=== PATIENT | female | born 1970 | race American Indian/Alaskan Native ===

== ENCOUNTER 2021-09-30 12:33 | Outpatient (CLI) | payer OTHER, SELFPAY ==
--- NOTE | 2021-09-30 13:00 | CRLHL7_ITS ---
For Patients: As a result of the Century Cures Act, medical imaging exams and procedure reports are released immediately into your electronic medical record. You may view this report before your referring provider. If you have questions, please contact your health care provider. BILATERAL SCREENING MAMMOGRAM WITH COMPUTER-AIDED DETECTION AND TOMOSYNTHESIS TECHNIQUE: CC and MLO views were obtained. These mammographic images have been obtained using full-field digital technique. These mammographic images were interpreted with the benefit of computer-aided detection. Breast Tomosynthesis was used in this interpretation. COMPARISON FILM: 09/19/19, 07/30/18, 04/21/17 FINDINGS: There are scattered areas of fibroglandular density IMPRESSION: There is no radiographic evidence for malignancy. ASSESSMENT: BI-RADS Category 1: Negative RECOMMENDATION: Routine screening mammogram in 1 year. A lay language report of this examination will be provided to the patient. Bharath Geller M.D. Diagnostic Radiologist [email or web address] SANDRA/Dictated by: Bharath Geller MD @ 10/01/2021 8:29:00 AM (Electronically Signed)
== END 2021-09-30 12:34 | disposition home or self-care (01) ==
LOC: MAMMO 12:35
PROVIDERS: PCP Physician Assistant Medical; Visit Provider Emergency Medicine
DX: Z12.31 Encounter for screening mammogram for malignant neoplasm of breast (principal)
CPT/HCPCS: 77063; 77067

== ENCOUNTER 2022-03-28 09:41 | Outpatient (CLI) | payer OTHER, SELFPAY ==
--- NOTE | 2022-03-28 10:25 | W.ANESCHARGE ---
Anesthesia Charges Start Date/Time Anesthesia Start Date: 03/28/22 Anesthesia Start Time: 11:00 Stop Date/Time Anesthesia Stop Date: 03/28/22 Anesthesia Stop Time: 11:35
--- NOTE | 2022-03-28 11:34 | W.ANESCHARGE ---
Anesthesia Charges Start Date/Time Anesthesia Start Date: 03/28/22 Anesthesia Start Time: 11:00 Stop Date/Time Anesthesia Stop Date: 03/28/22 Anesthesia Stop Time: 11:35
== END 2022-03-28 09:42 | disposition home or self-care (01) ==
PROVIDERS: PCP Physician Assistant Medical; Visit Provider Internal Medicine
DX: Z12.11 Encounter for screening for malignant neoplasm of colon (principal); K57.30 Diverticulosis of large intestine without perforation or abscess without bleeding
CPT/HCPCS: 00811; 45378; J2704

== ENCOUNTER 2022-10-23 11:25 | Emergency (ER) | payer OTHER, SELFPAY ==
[2022-10-23 11:45] VITALS: BP 113/77; PULSE 67; RESP 18; TEMP 35.8; O2SAT 98; BMI 29.1
--- NOTE | 2022-10-23 14:35 | CRLHL7_ITS ---
For Patients: As a result of the Century Cures Act, medical imaging exams and procedure reports are released immediately into your electronic medical record. You may view this report before your referring provider. If you have questions, please contact your health care provider. Indication: Chest pain Technique: Chest 2 views Comparison: Chest x-ray 02/22/2018 Findings/Impression: Cardiovascular and mediastinum: Heart size and vasculature are normal in caliber and appearance. Mediastinum is within normal limits. Lungs and pleural spaces: Lungs are clear. No sign of infiltrate or mass. No sign of pleural effusion. No pneumothorax. Bones and soft tissues: No significant findings. Dictated by Geovanny Barlow MD @ 10/23/2022 4:08:25 PM (Electronically Signed)
[2022-10-23 14:45] VITALS: BP 118/80; PULSE 55; RESP 20; O2SAT 96
[2022-10-23] MEDS: LACTATED RINGERS 1000 ML 1,000 ML IV (14:58)
--- NOTE | 2022-10-23 15:04 | ED.GENADULT ---
HPI - General Adult General Date Seen: 10/23/22 Chief complaint: Anxiety Stated complaint: Panic attack this AM Time Seen by Provider: 10/23/22 11:55 Source: patient Mode of arrival: ambulatory Limitations: no limitations History of Present Illness HPI narrative: Patient is a 52-year-old female presenting to the emergency department for choose pT2 discomfort. She states she has been feeling off all day and then earlier today around 10:00 o'clock she states she had a panic attack and had sharp pain in her lower sternal region the radiated around her chest. The pain was short lasting and nature has gone away completely. He did not come in immediately because she thought she just had a panic attack. She continues to feel tired and slight lightheadedness. She states she has not ate or drank much today thinks she might be dehydrated. No history of cardiac issues. Denies shortness of breath, abdominal pain, headache, vision changes, weakness, numbness, dizziness. Has had chills but no fevers. 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 Related Data Home Medications Medication Instructions Recorded Confirmed hydrochlorothiazide 12.5 mg capsule 12.5 mg PO DAILY 08/29/21 10/23/22 sertraline 50 mg tablet 75 mg PO DAILY 08/29/21 10/23/22 Previous Rx's Medication Instructions Recorded clindamycin phosphate 1 % lotion 1 applic topical QAM #60 mL 08/29/21 spironolactone 50 mg tablet 50 mg PO BID #180 tabs 08/29/21 clotrimazole-betamethasone 1 1 applic topical BID #15 grams 04/28/22 %-0.05 % topical cream ruxolitinib 1.5 % topical cream 1 applic topical BID #60 grams 09/16/22 (Opzelura) tretinoin 0.025 % topical cream 1 applic topical .HS #45 grams 09/16/22 triamcinolone acetonide 0.1 % 1 applic topical BID #80 grams 09/16/22 topical cream valacyclovir 500 mg tablet 500 mg PO DAILY #30 tabs 09/16/22 Allergies Allergy/AdvReac Type Severity Reaction Status Date / Time Sulfa Antibiotics Allergy Unknown Hives Uncoded 09/16/22 07:34 Review of Systems Status of ROS: Reports: 10 or more systems reviewed and unremarkable except as noted in History and below PFSH PFSH Medical History Herpes simplex ?B00.9 - Herpesviral infection, unspecified (ICD-10) Impetiginous eczema ?L01.1 - Impetiginization of other dermatoses (ICD-10) Premenstrual dysphoric disorder (04/30/12) ?F32.81 - Premenstrual dysphoric disorder (ICD-10) Menorrhagia (04/30/12) ?N92.0 - Excessive and frequent menstruation with regular cycle (ICD-10) History of renal calculi ?Z87.442 - Personal history of urinary calculi (ICD-10) Exposure to severe acute respiratory syndrome coronavirus 2 (SARS-CoV-2) ?Z20.822 - Contact with and (suspected) exposure to COVID-19 (ICD-10) Depressive disorder (09/18/06) ?F32.A - Depression, unspecified (ICD-10) Dental abscess ?K04.7 - Periapical abscess without sinus (ICD-10) Benign hypertension (05/24/12) ?I10 - Essential (primary) hypertension (ICD-10) Surgical History History of tubal ligation ?Z98.51 - Tubal ligation status (ICD-10) History of total hysterectomy ?Z90.710 - Acquired absence of both cervix and uterus (ICD-10) History of hernia repair ?Z98.890 - Other specified postprocedural states (ICD-10) ?Z87.19 - Personal history of other diseases of the digestive system (ICD-10) History of gastric bypass ?Z98.84 - Bariatric surgery status (ICD-10) History of cholecystectomy ?Z90.49 - Acquired absence of other specified parts of digestive tract (ICD-10) Family History Mother Diabetes High blood pressure Other Gout Social History Narrative: Has 3 children No history of alcohol use Non-smoker Smoking Status: Never smoker Exam Narrative: Exam Narrative: Const: Well-nourished, Well-developed, in mild distress Eyes: PERRL, no conjunctival injection, and symmetrical lids ENMT: Atraumatic external nose and ears. Moist mucous membranes. Neck: Symmetric, trachea midline, No thyromegaly. CVS: RRR, No murmurs or gallops. Peripheral pulses 2+ and equal in all extremities RESP: Unlabored respiratory effort. Clear to auscultation bilaterally. GI: Nontender/Nondistended, No rebound or guarding. MSK:Extremities w/o deformity, Normal Active ROM Skin: Warm, Dry. No rashes or lesions. Neuro: Normal Muscle tone, No focal neurological deficits. Psych: Awake, Alert, & Oriented x3. Appropriate mood and affect. Const: Vital Signs, click to edit/add: Vital Signs - 24 hr 10/23/22 11:45 10/23/22 14:45 10/23/22 17:18 Temperature 96.4 F L 97.1 F L Pulse Rate [Pulse Oximeter] 67 55 L 52 L Respiratory Rate 18 20 20 Blood Pressure [Ri ght Upper Arm] 113/77 118/80 119/78 Pulse Oximetry 98 96 96 Oxygen Delivery Me thod Room Air Room Air Room Air Course Vital Signs Vital signs: Initial Vital Signs Temperature 96.4 F L 10/23/22 11:45 Temperature Source Temporal Artery Scan 10/23/22 11:45 Pulse Rate 67 10/23/22 11:45 Respiratory Rate 18 10/23/22 11:45 Blood Pressure 113/77 10/23/22 11:45 Blood Pressure Mean 89 10/23/22 11:45 Blood Pressure Position Sitting 10/23/22 11:45 Pulse Oximetry 98 10/23/22 11:45 Oxygen Delivery Method Room Air 10/23/22 11:45 Vital Signs Temperature 96.4 F L 10/23/22 11:45 Pulse Rate 67 10/23/22 11:45 Respiratory Rate 18 10/23/22 11:45 Blood Pressure 113/77 10/23/22 11:45 Pulse Oximetry 98 10/23/22 11:45 Oxygen Delivery Method Room Air 10/23/22 11:45 Temperature 97.1 F L 10/23/22 17:18 Pulse Rate 52 L 10/23/22 17:18 Respiratory Rate 20 10/23/22 17:18 Blood Pressure 119/78 10/23/22 17:18 Pulse Oximetry 96 10/23/22 17:18 Oxygen Delivery Method Room Air 10/23/22 17:18 Medical Decision Making MDM Narrative Medical decision making narrative: Patient is a 21-year-old female presenting to emergency department for chest pain and fatigue. Symptoms appear consistent with viral syndrome but with the chest pain and cardiac workup was ordered. Pain was very short lived and she initially thought was just a panic attack but she still feeling fatigued so came to the emergency department. chest x-ray was done showing no signs of pneumothorax or pneumonia. Mediastinum within normal size. Lab work all returned showing no concerning abnormalities. Troponin is less than 0.01. Very mild elevated AST and ALT in this is not of a concern at this time. No signs of infection with the white blood cell count. Urinalysis was ordered because she requested after she started having low back pain and was negative. She did not require any pain medications. COVID/flu/ RSV was also negative. EKG return showing bradycardia and she is asymptomatic during this. I spoke to her about the bradycardia and she says her heart rate does do that but she has never spoken to her primary care provider about it. Since she is asymptomatic for the bradycardia I do not believe it needs to be further investigated in the emergency department by did have a long talk to her about the importance of following up with her primary care provider about this bradycardia so they are aware of at. Is unlikely to be ACS as she has a heart score of 1. She is otherwise doing well and can be safely discharged. Lab Data Labs: Lab Results 10/23/22 10/23/22 Range/Units 15:00 Unknown WBC 5.19 (4.50-11.00) K/uL RBC 4.22 (4.00-5.20) m/uL Hgb 12.3 (12.0-16.0) gm/dL Hct 38.4 (33.0-51.0) % MCV 91 (80-100) fL MCH 29 (26-34) pg MCHC 32 (32-36) gm/dL RDW Coeff of Chetan 13.2 (11.5-15.5) % Plt Count 289 (140-440) K/uL Neut % (Auto) 55.3 (42.0-72.0) % Lymph % (Auto) 31.0 (20-44) % [place] % (Auto) 9.6 (0.0-11.0) % Eos % (Auto) 2.9 (0.0-7.0) % Baso % (Auto) 0.6 (0.0-3.0) % Neut # (Auto) 2.87 (1.7-7.0) K/uL Lymph # (Auto) 1.61 (0.90-2.90) K/uL [place] # (Auto) 0.50 (0.00-0.90) K/UL Eos # (Auto) 0.15 (0.00-0.50) K/uL Baso # (Auto) 0.03 (0.00-0.30) K/uL Abs Immat Gran (auto) 0.03 (0.00-0.30) K/uL Imm/Tot Granulo (auto) 0.6 % Sodium 141 (135-149) mmol/L Potassium 3.7 (3.6-5.1) mmol/L Chloride 107 (96-114) mmol/L Carbon Dioxide 28 (20-32) mmol/L Anion Gap 6 L (7-15) mEq/L BUN 17 (7-30) mg/dL Creatinine 0.5 (0.5-1.5) mg/dL Estimated Creat Clear 119.78 Estimated GFR 113 ml/min Glucose 77 (60-115) mg/dL Calcium 9.4 (8.4-10.6) mg/dL Total Bilirubin 0.4 (0.1-1.5) mg/dL AST 39 H (12-35) U/L ALT 39 H (4-35) U/L Alkaline Phosphatase 111 (40-150) U/L Troponin I < 0.01 L (0.01-0.04) ng/mL Total Protein 7.4 (6.0-8.3) g/dL Albumin 4.2 (3.3-5.0) g/dL Urine Color Yellow (Yellow) Urine Appearance Clear (Clear) Urine pH 6.0 (5.0-8.5) Ur Specific [place] 1.025 (1.000-1.030) Urine Protein Negative (Negative) Urine Glucose (UA) Negative (Negative) Urine Ketones Negative (Negative) Urine Blood Negative (Negative) Urine Nitrite Negative (Negative) Urine Bilirubin Negative (Negative) Urine Urobilinogen 0.2 (0.2-1.0) Ur Leukocyte Esterase Negative (Negative) Urine RBC 0-2 (0-2) Urine WBC 0-2 (0-5) Ur Squamous Epith Cells None (None-Few) Urine Bacteria None (None) Urine HCG, Qual Negative (Negative) SARS-CoV-2 (PCR) Negative SARS-CoV-2 (Negative) Influenza Type A (PCR) Negative PCR FLU A (Negative) Influenza Type B (PCR) Negative PCR FLU B (Negative) RSV (PCR) Negative PCR RSV (Negative) ECG Data Attestation: I personally reviewed and interpreted this ECG as follows: Prior ECG tracings: not available for review Interpretation: Sinus bradycardia rate 48 beats per minute, normal intervals, normal axis, no ST or T-wave abnormalities Discharge Plan Discharge Clinical Impression: Atypical chest pain Patient Disposition: Home, Self-Care Condition: Stable Instructions: Noncardiac Chest Pain (ED) Additional Instructions: follow-up with the primary care provider. Return for new or worsening symptoms. Make sure to talk to your primary care provider about your intermittent bradycardia. Prescriptions: No Action sertraline 50 mg tablet 75 mg PO DAILY hydrochlorothiazide 12.5 mg capsule 12.5 mg PO DAILY spironolactone 50 mg tablet 50 mg PO BID Qty: 180 2RF clindamycin phosphate 1 % lotion 1 applic topical QAM Qty: 60 3RF triamcinolone acetonide 0.1 % cream 1 applic topical BID Qty: 80 0RF valacyclovir 500 mg tablet 500 mg PO DAILY Qty: 30 6RF tretinoin 0.025 % cream 1 applic topical .HS Qty: 45 3RF Opzelura 1.5 % cream 1 applic topical BID Qty: 60 2RF clotrimazole-betamethasone 1-0.05 % cream 1 applic topical BID Qty: 15 0RF Follow Up/Referrals: Danielle Cruz PA-C [Primary Care Provider] - Stand Alone Forms: [employer], [employer] Info Instructions
[2022-10-23 15:16] LABS: Basophils Absolute Auto 0.03 K/uL (0.00-0.30); Basophils Percent Auto 0.6 % (0.0-3.0); Eosinophils Absolute Auto 0.15 K/uL (0.00-0.50); Eosinophils Percent Auto 2.9 % (0.0-7.0); Hematocrit 38.4 % (33.0-51.0); Hemoglobin* 12.3 gm/dL (12.0-16.0); Immature Granulocytes Abs Auto 0.03 K/uL (0.00-0.30); Immature Granulocytes Pct Auto 0.6 %; Lymphocytes Absolute Auto 1.61 K/uL (0.90-2.90); Mean Corpuscular HGB Conc 32 gm/dL (32-36); Mean Corpuscular Hemoglobin 29 pg (26-34); Mean Corpuscular Volume 91 fL (80-100); Monocytes Percent Auto 9.6 % (0.0-11.0); Neutrophils Absolute Auto 2.87 K/uL (1.7-7.0); Neutrophils Percent Auto 55.3 % (42.0-72.0); Platelet Count* 289 K/uL (140-440); RDW Coefficient of Variation % 13.2 % (11.5-15.5); Red Blood Count 4.22 m/uL (4.00-5.20); White Blood Count* 5.19 K/uL (4.50-11.00)
[2022-10-23 15:24] LABS: Appearance Urine Clear (Clear); Bilirubin Urine Negative (Negative); Blood Urine Negative (Negative); Color Urine Yellow (Yellow); Glucose Urine Negative (Negative); Ketones Urine Negative (Negative); Leukocyte Esterase Urine Negative (Negative); Nitrite Urine Negative (Negative); Protein Urine Negative (Negative); Specific Gravity Urine 1.025 (1.000-1.030); Urobilinogen Urine 0.2 (0.2-1.0)
[2022-10-23 15:25] LABS: Slide Review Reflex No
[2022-10-23 15:36] LABS: Ur HCG Qualitative* Negative (Negative)
[2022-10-23 15:45] LABS: Albumin* 4.2 g/dL (3.3-5.0); Chloride* 107 mmol/L (96-114); Potassium* 3.7 mmol/L (3.6-5.1); Sodium* 141 mmol/L (135-149)
[2022-10-23 15:47] LABS: Bilirubin Total* 0.4 mg/dL (0.1-1.5); Creatinine* 0.5 mg/dL (0.5-1.5); Est. Creatinine Clearance* 119.78; Estimated Glomerular Filt Rate 113 ml/min
[2022-10-23 15:48] LABS: Alanine Aminotransferase* 39 U/L (4-35); Alkaline Phosphatase* 111 U/L (40-150); Anion Gap 6 mEq/L (7-15); Aspartate Amino Transferase* 39 U/L (12-35); Blood Urea Nitrogen* 17 mg/dL (7-30); Calcium* 9.4 mg/dL (8.4-10.6); Carbon Dioxide* 28 mmol/L (20-32); Glucose* 77 mg/dL (60-115); Total Protein* 7.4 g/dL (6.0-8.3)
[2022-10-23 15:59] LABS: RBC Urine 0-2 (0-2); WBC Urine 0-2 (0-5)
[2022-10-23 16:02] LABS: Troponin I* < 0.01 ng/mL (0.01-0.04)
[2022-10-23 16:32] LABS: PCR FLU A Negative PCR FLU A (Negative); PCR FLU B Negative PCR FLU B (Negative); PCR RSV Negative PCR RSV (Negative)
[2022-10-23 16:33] LABS: SARS PCR* Negative SARS-CoV-2 (Negative)
[2022-10-23 17:18] VITALS: BP 119/78; PULSE 52; RESP 20; TEMP 36.2; O2SAT 96
== END 2022-10-23 17:18 | disposition home or self-care (01) ==
PROVIDERS: Emergency Provider Student in an Organized Health Care Education/Training Program; PCP Physician Assistant Medical
DX: R07.89 Other chest pain (principal)
CPT/HCPCS: 36415; 71046; 80053; 81001; 81025; 84484; 85025; 87631; 93005; 99283; 99284; J7120

== ENCOUNTER 2023-11-12 12:25 | Outpatient (CLI) | payer OTHER, SELFPAY | END 2023-11-12 12:26 | disposition home or self-care (01) | LOC: NFLDREF 11-13 08:34 | PROVIDERS: PCP Physician Assistant Medical; Referring Provider Physician Assistant Medical; Visit Provider Family Medicine | DX: R30.0 Dysuria (principal); B00.9 Herpesviral infection, unspecified; N39.0 Urinary tract infection, site not specified | CPT/HCPCS: 87086; 87186 ==

== ENCOUNTER 2024-02-05 07:50 | Outpatient (CLI) | payer OTHER, SELFPAY | END 2024-02-05 07:51 | disposition home or self-care (01) | LOC: NFLDREF 02-07 09:52 | PROVIDERS: PCP Physician Assistant Medical; Referring Provider Physician Assistant Medical; Visit Provider Physician Assistant Medical | DX: I10 Essential (primary) hypertension (principal); Z13.220 Encounter for screening for lipoid disorders; Z13.29 Encounter for screening for other suspected endocrine disorder | CPT/HCPCS: 80053; 80061; 84443 ==

== ENCOUNTER 2024-11-16 15:32 | Outpatient (CLI) | payer OTHER, SELFPAY | END 2024-11-16 15:33 | disposition home or self-care (01) | PROVIDERS: PCP Physician Assistant Medical; Visit Provider Physician Assistant Medical | DX: I10 Essential (primary) hypertension (principal); E55.9 Vitamin D deficiency, unspecified | CPT/HCPCS: 80053; 80061; 84443 ==

== ENCOUNTER 2025-01-28 21:54 | Day surgery (SDC) | payer MEDICAID, SELFPAY ==
--- OUTSIDE RECORDS SUMMARY | 2025-01-28 21:56 | XMS_ITS | Clinical Summary ---
Author Organization [facility] [facility] Address [address] [place] [address] Care Team Providers Care Change Management Analyst Name Role Phone CruzDanielle ace Michaelle LEONARDO Primary Care Provider [phone] Thai Man MD Unavailable [phone] Unavailable Unavailab Mireille Macias RN Unavailable [phone] Unavailable Unavailable Allergies Active Allergy Reactions Criticality Noted Date Comments Nsaids (Non-Steroidal Anti-Inflammatory Drug) Other - Describe In Comment Field 03/01/2019 This patient has a history of a Diane-en-Y gastric bypass. AVOID NSAIDs and aspirin due to risk of gastric and/or G-J anastomotic ulcers. If Jenni must be on short course of NSAIDs or aspirin, use enteric coated if possible and use PPI // Mireille Li RN, Bariatric Nurse Clinician, [facility] Weight Management 03/01/2019. Sulfa (Sulfonamide Antibiotics) Hives 10/20/2018 Medications acetaminophen (TYLENOL) 325 mg tabletIndicati ons:Bariatric surgery status Take 2 tablets by mouth every 6 hours if needed (For mild pain. Start when tolerating oral well.). Max acetaminophen dose: 4000mg in 24 hrs. 0 0 Active pedi multivit 43-iron fumarate (FLINTSTONES COMPLETE, IRON,) 18 mg iron chewIndication s:Bariatric surgery status Take 1 tablet twice daily 0 Active cyanocobalamin (VITAMIN B-12) 1,000 mcg tabletIndicati ons:Bariatric surgery status Take 1 tablet by mouth once daily. 0 Active Calcium Citrate 250 mg calcium tablet 1200mg-1500mg daily (separate doses 2-3 times daily) 0 Active cholecalcifero l, Vitamin D3, (VITAMIN D-3) 5,000 unit tab tablet Take 1 tablet by mouth once daily. 0 0 Active oxyCODONE (ROXICODONE) 5 mg immediate release tabletIndicati ons:Ureterolit hiasis Take 1 tablet by mouth every 6 hours if needed for Pain 12 tablet 2019 10:04 AM [employer] SERVICE SUPERVISOR 0 Active oxybutynin (DITROPAN) 5 mg tabletIndicati ons:Ureterolit hiasis Take 1 tablet by mouth 3 times daily if needed for bladder spasm. 30 tablet 2019 10:04 AM [employer] DI[employer] SERVICE SUPERVISOR 0 Active sertraline HCl (SERTRALINE ORAL) Take by mouth. Activ e oxyCODONE (ROXICODONE) 5 mg immediate release tabletIndicati ons:Ureterolit hiasis Take 1 Tablet (5 mg) by mouth every 4 hours if needed for Pain. 10 Tablet 3 Active tamsulosin (FLOMAX) 0.4 mg capsuleIndicat ions:Ureteroli thiasis Take 1 Capsule (0.4 mg) by mouth once daily after a meal. 7 Capsule 3 Active Active Problems Patient Care Coordination No te Formatting of this note migh t be different from the original. Tiny benign Gallbladder polyp. Weight Management - Adult Surgical Program -- [facility] Initial Consult 11/18/2018 with Thai Man MD Intake: 244# (5'4 BMI: 41.88) Operation: Diane-en Y gastric bypass 02/28/2019 Problem Noted Date Diagnosed Date Ureterolithiasis 03/29/2019 Hydronephrosis 03/29/2019 s/p s/p laparoscopic diane-en -Y gastric bypass, cholecystectomy and hiatal hernia repair 02/28/2019 Dr. Man 02/28/2019 Overview (02/28/2019): Dr. Man Morbid obesity with BMI of 40.0-44.9, adult 10/24 Multiparity 04/29/2005 Incompetence of cervix 04/29/2005 miscarraige at 22 weeks 04/29/2005 Gallbladder polyp Hiatal hernia Encounters Date Type Department Care Team Description 01/28/2025 6:36 PM K[employer] DI[employer] SERVICE SUPERVISOR - 01/28/2025 6:58 PM K[employer]HER DI[employer]ARY SERVICE SUPERVISOR Emergency [facility] [address] [place] [address] Maria Dolores Lao, MARIA A [id number] from Last 3 Months Immunizations Immunization Administration Dates Next Due Influenza, IIV4 12/02/2017,02/21/2016 Family History Medical History Relation Name Comments Diabetes Father Hypertension Father Obesity Father Diabetes Maternal Grandfather Hypertension Maternal Grandfather Obesity Maternal Grandfather Diabetes Maternal Grandmother Hypertension Maternal Grandmother Obesity Maternal Grandmother Diabetes Mother Hyperlipidemia Mother Hypertension Mother Obesity Mother Hypertension Sister Obesity Sister Relation Name Status Comments Brother Alive Father Alive Maternal Grandfather Maternal Grandmother Mother Alive Sister Alive Social History Tobacco Use Types Packs/Day Years Used Date Smoking Tobacco: Never Smokeless Tobacco: Never Alcohol Use Standard Drinks/Week Comments No 0 (1 standard drink = 0.6 oz pur e alcohol) PHQ-2 Answer Date Recorded PHQ-2 Score 0 11/19/2018 Social Connections Answer Date Recorded Frequency of Communication with Friends and Fami ly Not on file 02/23/2021 Financial Resource Strain Answer Date R ecorded Difficulty of Paying Living Expenses Not on file 02/23/2021 Difficulty of Paying Living Expenses Not on file 02/23/2021 Comments No Sex and Gender Information Value Date Recorded Sex Assigned at Not on file Legal Sex Female 5:28 AM KOS[employer] DI[employer] SERVICE SUPERVISOR Gender Identity Not on file Sexual Orientation Not on file 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 on file Not on file Not on arlette e Last Filed Vital Signs Vital Sign Reading Time Taken Comments Blood Pressure 159/99 12/14/2022 9:24 AM CDT Pulse 54 12/14/2022 9:24 AM CDT Temperature 36.4 C (97.6 F) 12/14/2022 9:24 AM CDT Respiratory Rate 22 12/14/2022 9:24 AM CDT Oxygen Saturation 100% 12/14/2022 9:24 AM CDT Inhaled Oxygen Concentration - - Weight 90.2 kg (198 lb 12.8 oz) 2019 5:53 AM [employer] DI[employer] SERVICE SUPERVISOR Height 162.6 cm (5' 4) 04/07/2019 10:3 1 AM K[employer]HER DI[employer]ARY SERVICE SUPERVISOR Body Mass Index 34.12 04/07/2019 10:31 AM K[employer]HER DI[employer] SERVICE SUPERVISOR Plan of Treatment Health Maintenance Due Date Last Done Comments Tetanus booster 1982 HIV for age 15-65 1986 Hepatitis C screening for ag e 18-79 1989 Hepatitis B series for 19+ ( 1 of 3 - 19+ 3-dose series) 1990 Pneumococcal series for age 50+ (1 of 2 - PCV) 1990 Pap test for age 21-65 12/14/2010 8, 04/29/2005, 04/29/2005 Colonoscopy through age 75 2016 Lipids for age 45-75 2016 Mammogram for age 45-75 2016 Depression screening for age 12+ 11/18/2019 11/18/19 19 BMI (ht and wt on same day) for age 18+ 04/06/2020 04/06/2019, 03/08/2019, 01/18/2019, Additional history exists RSV vaccine for adults or (1 - Risk 50-74 years 1-dose series) 2021 Zoster (shingles) series for age 50+ (1 of 2) 2021 COVID-19 vaccine series ( - season) 2024 11/26/2020, 11/05/2020 Influenza Vaccine (#1) 2024 12/02/2017, 2015 Medical Devices Implanted Type Area Charge Master Coordinator Device Identifier Shelf Expiration Date Model / Serial / Lot Stent Uret [id number] Percuflex Hydroplus - [id number] Implanted:Qty: 1 on 2019 by Jakob Tolentino MD at [facility] Left: [facility]reter [facility] 01/10/2022 [id number] / / [id number] Explanted Type Area Charge Master Coordinator Device Identifier Shelf Expiration Date Model / Serial / Lot Stent Uret [id number] Percuflex Hydroplus - [id number] Implanted:Qty: 1 on 03/29/2019 by Bharath Martinez MD at [facility] Explanted:Qty: 1 on 2019 by Jakob Tolentino MD at [facility] Left: Ureter [facility] 07/06/2021 [id number]# / / [id number] Procedures Procedure Name Priority Date/Time Associated Diagnosis Comments GYNECOLOGICAL PANEL Timed 12/15/2007 9 :10 AM CDT from Last 3 Months or Most Recently Relevant to Health Maintenance Results * GYNECOLOGICAL PANEL (12/15/2007 9:10 AM CDT) CYTOLOGY CYTOPATHOLOGY REPORT [facility] Status: Final Report [id number] CLINICAL INFORMATION Date of Last LMP : 12/05/07 Last Pap Date : UNSURE Last Pap Result : Not given ABN Richton/Bx Past 5 YRS: None Menstrual Status : Abnormal bleeding Richton/Bx done today : No HPV Request : HPV if ASCUS SPECIMEN SOURCE : Cervical/vaginal ThinPrep Vial, screening SPECIMEN ADEQUACY : Satisfactory for evaluation Endocervical component present. INTERPRETATION/RES ULT: Negative for intraepithelial lesion or malignancy (NIL) Cytology 1st Screener : david Signed by: david This specimen was screened by the FDA approved ThinPrep Imaging System and manually reviewed. NOTE: The Pap test is a screening technique, not a diagnostic procedure. It is used primarily to screen for squamous cancers and precursor lesions. Published studies have shown that it is subject to both false negative and false positive results. The pap test should not be used as the sole means to diagnose or exclude pre-malignant and malignant lesions. COLLECTED: 12/15/07 ACCESSIONED: 12/17/07 SIGNED: 12/24/07 [facility] [place] CODE NIL [facility] 12/15/2007 9:10 AM CDT 12/17/2007 9:10 AM CDT may Juan LEONARDO PATHOLOGY/CYTOLOGY Final R esult [facility] INTERNAL ZIP [id number] [address] from Last 3 Months or Most Recently Relevant to Health Maintenance Advance Directives * Full Code (Latest Code Status on File) Date Activated Date Inactivated Comments 2019 5:45 AM 2019 1:01 PM * Full Code Date Activated Date Inactivated Comments 03/29/2019 7:34 AM 03/30/2019 12:35 PM * Full Code Date Activated Date Inactivated Comments 02/28/2019 12:29 PM 03/01/2019 2:31 PM Care Teams Change Management Analyst Relationship Specialty Start Date End Date Danielle Cruz PA-C [address] [place] [id number] PCP - General Physician Pulmonary Function Technologist 10/20/18 Thai Man MD [address] [place] [address] [id number] Consulting Physician Surgery - General 11/02/[address] [place] [id number] Registered Dietitian Addiction Psychiatrist 11/02/18 Mireille Li, RN [address] [place] [address] Registered Nurse Registered Nurse 11/02/[address] [place] [id number] Production Internship/Aircraft Steel Fabricator Addiction Psychiatrist 11/30/18
--- OUTSIDE RECORDS SUMMARY | 2025-01-28 21:56 | XMS_ITS | Clinical Summary ---
Author Organization [facility] Address [address] [place] [id number] Care Team Providers Care Director Consumer Affairs Name Role Phone Danielle Cruz PA-C Primary Care Provider Allergies No known active allergies Medications LEXAPRO 10 MG OR TABS ONE DAILY 1 month 1 11/17/2005 Active Active Problems Problem Noted Date Diagnosed Date NO ACTIVE PROBLEMS Resolved Problems Problem Noted Date Diagnosed Date Resolved Date Left foot pain 08/12/2018 10/06/2018 Streptococcus infection in c onditions classified elsewhere and of unspecified site, group B 10/06/2005 11/24/2005 Overview (10/06/2005): History of strep in vagina with previous deliveries-treat in labor Supervision of high-risk pre gnancy of young multigravida 08/11/2005 11/24/2005 Overview (09/24/2005): History of deliveries at 34 and 22 weeks. Incompetence of cervix 07/14/200508/29 Immunizations Immunization Administration Dates Next Due Influenza (intradermal) 12/02/2017 TDAP Vaccine (Adacel) 12/18/2014 Family History Medical History Relation Comments Diabetes Maternal Grandfather Diabetes Maternal Grandmother Diabetes Mother Relation Status Comments Maternal Grandfather Maternal Grandmother Mother Social History Tobacco Use Types Packs/Day Years Used Date Smoking Tobacco: Never Smokeless Tobacco: Never Alcohol Use Standard Drinks/Week Comments No 0 (1 standard drink = 0.6 oz pur e alcohol) Adolescent Education Answer Date Record ed Getting School Help Needed Not on file 11/29 Comments No Sex and Gender Information Value Date Recorded Sex Assigned at Not on file Legal Sex 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 Gender Identity Not on file Sexual Orientation Not on file 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 Not on file Not on file Not on file Last Filed Vital Signs Vital Sign Reading Time Taken Comments Blood Pressure 116/75 03/08/2018 1:30 AM PULP REFINER OPERATOR Pulse 90 03/08/2018 1:30 AM PULP REFINER OPERATOR Temperature 36.7 C (98 F) 03/08/2018 2:35 AM PULP REFINER OPERATOR Respiratory Rate 26 03/08/2018 1:01 AM PULP REFINER OPERATOR Oxygen Saturation 97% 03/08/2018 1:30 AM PULP REFINER OPERATOR Inhaled Oxygen Concentration - - Weight 97.1 kg (214 lb) 03/08/2018 1:01 AM PULP REFINER OPERATOR Height 167.6 cm (5' 6) 11/03/2005 3:45 PM CDT Body Mass Index - - Plan of Treatment Not on file Insurance [employer] Care Teams Director Consumer Affairs Relationship Specialty Start Date End Date Danielle Cruz PA-C [address] [place], [place] [id number] PCP - General 03/08/18
[2025-01-28 22:13] VITALS: BP 121/86; PULSE 74; RESP 18; TEMP 36.9; O2SAT 99; BMI 25.3
[2025-01-28 22:19] LABS: Appearance Urine Clear (Clear)
[2025-01-28 22:43] LABS: Hematocrit* 34.8 % (33.0-51.0); Hemoglobin* 11.3 gm/dL (12.0-16.0); Immature Granulocytes Abs Auto 0.06 K/uL (0.00-0.30); Immature Granulocytes Pct Auto 0.8 %; Mean Corpuscular HGB Conc 33 gm/dL (32-36); Mean Corpuscular Hemoglobin 29 pg (26-34); Mean Corpuscular Volume 91 fL (80-100); RDW Coefficient of Variation % 12.9 % (11.5-15.5); Red Blood Count* 3.84 m/uL (4.00-5.20); White Blood Count* 7.93 K/uL (4.50-11.00)
[2025-01-28 22:48] LABS: Lymphocytes Absolute Auto 1.50 K/uL (0.90-2.90); Slide Review Reflex No
[2025-01-28 22:56] LABS: Albumin* 3.7 g/dL (3.3-5.0); Chloride* 106 mmol/L (96-114); Potassium* 3.3 mmol/L (3.6-5.1); Sodium* 140 mmol/L (135-149)
[2025-01-28 22:59] LABS: Alanine Aminotransferase* 20 U/L (4-35); Alkaline Phosphatase* 135 U/L (40-150); Anion Gap 9 mEq/L (7-15); Aspartate Amino Transferase* 20 U/L (12-35); Bilirubin Total* 0.2 mg/dL (0.1-1.5); Blood Urea Nitrogen* 16 mg/dL (7-30); Calcium* 8.5 mg/dL (8.4-10.6); Carbon Dioxide* 25 mmol/L (20-32); Creatinine* 0.6 mg/dL (0.5-1.5); Est. Creatinine Clearance* 101.51; Estimated Glomerular Filt Rate 107 ml/min; Glucose* 95 mg/dL (60-115); Total Protein* 6.5 g/dL (6.0-8.3)
--- NOTE | 2025-01-28 23:11 | ED.ABDPAIN ---
HPI - Abdominal Pain General Time Seen by Provider: 23:11 Date Seen: 01/28/25 Chief Complaint: Abdominal Pain Stated Complaint: Lower abdominal pain Time Seen by Provider: 01/28/25 23:11 Source: patient Mode of arrival: ambulatory History of Present Illness HPI narrative: Jenni is a 54 yo female who has a past medical history of hypertension, ADD, renal colic, history of hysterectomy, gastric bypass who presents emergency department for evaluation of abdominal pain. Patient complains of right lower quadrant abdominal pain that has been ongoing for the past 2 days. Patient reports constant pain that is worse with walking and moving. Patient reports work so stated nausea, feeling exhausted but denies any fever, chills, vomiting, dysuria, hematuria. Patient reports history of kidney stones however states that this pain feels different so came in for further evaluation. Patient has been taking ibuprofen which seems to help with the pain. Last dose was 1 hour prior to arrival. No other complaints. Related Data Home Medications ?Medication ?Instructions ?Recorded ?Confirmed desvenlafaxine succinate 100 mg 100 mg PO DAILY 10/27/23 01/28/25 tablet,extended release 24 hr dextroamphetamine-amphetamine 5 mg 1 tab PO DAILY 10/27/23 01/28/25 tablet dextroamphetamine-amphetamine ER 1 cap PO QAM 10/27/23 01/28/25 15 mg 24hr capsule,extend release valacyclovir 500 mg tablet 500 mg PO DAILY PRN 11/12/23 01/28/25 Previous Rx's ?Medication ?Instructions ?Recorded lisinopril 5 mg tablet 5 mg PO QDAY #90 tabs 11/16/24 Allergies Allergy/AdvReac Type Severity Reaction Status Date / Time No Known Drug Allergies Allergy Verified 01/28/25 22:17 Review of Systems Narrative Past medical history, past surgical history, medications, allergies, family history, and social history were reviewed with the patient. No additional pertinent items. A medically appropriate review of systems was performed with pertinent positives and negatives noted in HPI, all other systems negative. [facility] Medical History (Updated 01/29/25 @ 00:30 by Sherrie Llanos MD) Elbow pain, right ?M25.521 - Pain in right elbow (ICD-10) Urinary tract infection ?N39.0 - Urinary tract infection, site not specified (ICD-10) Herpes simplex ?B00.9 - Herpesviral infection, unspecified (ICD-10) Impetiginous eczema ?L01.1 - Impetiginization of other dermatoses (ICD-10) Premenstrual dysphoric disorder (04/30/12) ?F32.81 - Premenstrual dysphoric disorder (ICD-10) Menorrhagia (04/30/12) ?N92.0 - Excessive and frequent menstruation with regular cycle (ICD-10) History of renal calculi ?Z87.442 - Personal history of urinary calculi (ICD-10) Exposure to severe acute respiratory syndrome coronavirus 2 (SARS-CoV-2) ?Z20.822 - Contact with and (suspected) exposure to COVID-19 (ICD-10) Depressive disorder (09/18/06) ?F32.A - Depression, unspecified (ICD-10) Dental abscess ?K04.7 - Periapical abscess without sinus (ICD-10) Benign hypertension (05/24/12) ?I10 - Essential (primary) hypertension (ICD-10) Surgical History History of tubal ligation ?Z98.51 - Tubal ligation status (ICD-10) History of total hysterectomy ?Z90.710 - Acquired absence of both cervix and uterus (ICD-10) History of hernia repair ?Z98.890 - Other specified postprocedural states (ICD-10) ?Z87.19 - Personal history of other diseases of the digestive system (ICD-10) History of gastric bypass ?Z98.84 - Bariatric surgery status (ICD-10) History of cholecystectomy ?Z90.49 - Acquired absence of other specified parts of digestive tract (ICD-10) Family History Mother Diabetes High blood pressure Other Gout Social History Narrative: Has 3 children No history of alcohol use Non-smoker Smoking Status: Never smoker Second hand tobacco smoke exposure: No How often do you have a drink containing alcohol: never AUDIT-C Alcohol total score: 0 Non-prescribed substance use: denies use Exam Narrative: Exam Narrative: General: Afebrile, in distress secondary to pain HEENT: Normocephalic, atraumatic, conjunctiva normal. MMM Neck: non-tender, supple Cardio: regular rate. regular rhythm Resp: Normal work of breathing, no respiratory distress, lungs clear bilaterally, no wheezing, rhonchi, rales Chest/Back: no visual signs of trauma, no midline tenderness, no CVA tenderness Abdomen: soft, non distension,+ tenderness to palpation right lower quadrant, no peritoneal signs Neuro: alert and fully oriented. CN II-XII grossly intact. Grossly normal strength and sensation in all extremities. MSK: no deformities. Normal range of motion Integumentary/Skin: no rash visualized, normal color Psych: normal affect, normal behavior Const: Vital Signs, click to edit/add: Vital Signs - 24 hr 01/28/25 22:13 Temperature 98.5 F Pulse Rate [Right Pulse Oximeter] 74 Respiratory Rate 18 Blood Pressure [Ri ght Upper Arm] 121/86 Pulse Oximetry 99 Oxygen Delivery Me thod Room Air Course Vital Signs Vital signs: Initial Vital Signs Temperature 98.5 F 01/28/25 22:13 Temperature Source Temporal Artery Scan 01/28/25 22:13 Pulse Rate 74 01/28/25 22:13 Respiratory Rate 18 01/28/25 22:13 Blood Pressure 121/86 01/28/25 22:13 Blood Pressure Mean 97 01/28/25 22:13 Blood Pressure Position Sitting 01/28/25 22:13 Pulse Oximetry 99 01/28/25 22:13 Oxygen Delivery Method Room Air 01/28/25 22:13 Vital Signs Temperature 98.5 F 01/28/25 22:13 Pulse Rate 74 01/28/25 22:13 Respiratory Rate 18 01/28/25 22:13 Blood Pressure 121/86 01/28/25 22:13 Pulse Oximetry 99 01/28/25 22:13 Oxygen Delivery Method Room Air 01/28/25 22:13 Temperature 98.5 F 01/28/25 22:13 Pulse Rate 74 01/28/25 22:13 Respiratory Rate 18 01/28/25 22:13 Blood Pressure 121/86 01/28/25 22:13 Pulse Oximetry 99 01/28/25 22:13 Oxygen Delivery Method Room Air 01/28/25 22:13 Medications Administered Medications: Generic Name Dose Route Start Last Admin Trade Name Freq PRN Reason Stop Dose Admin Hydromorphone HCl 0.5 mg 01/29/25 00:35 01/29/25 00:49 Hydromorphone 0.5 Mg/0.5 Ml Inj IVP 01/29/25 00:36 0.5 mg ONCE ONE Administration Sodium Chloride 1,000 mls @ 1,000 mls/hr 01/29/25 00:30 01/29/25 00:48 0.9 % Sodium Chloride 1000 Ml IV 01/29/25 01:29 1,000 mls/hr .Q1H RADHA Administration Piperacillin Sod/Tazobactam 100 mls @ 200 mls/hr 01/29/25 00:30 01/29/25 00:48 Sod 4.5 gm/ Sodium Chloride IVPB 01/29/25 00:31 200 mls/hr ONCE ONE Administration MDM - Abdominal Pain MDM Narrative Medical decision making narrative: Jenni is a 54 yo female who has a past medical history of hypertension, ADD, renal colic, history of hysterectomy, gastric bypass who presents emergency department for evaluation of abdominal pain. Upon arrival patient is nontoxic appearing, afebrile, in distress secondary to pain. Patient hemodynamically stable vital signs within normal limits. Differential diagnosis includes but is not limited to appendicitis versus nephrolithiasis versus cystitis versus pyelonephritis versus ovarian cyst versus ovarian torsion among others. Patient declined anything for her symptoms at this time. Took ibuprofen approximately 1 hour prior to arrival. Upon arrival IV was established. Comprehensive labs were performed and remarkable for no leukocytosis white blood cell count 7.9, hemoglobin 11.3, potassium slightly low at 3.3, no other acute metabolic electrolyte abnormality, no transaminitis, normal lipase. Urinalysis with no evidence of acute infection. + 1 blood, no urine red blood cells. Given patient's ongoing abdominal pain, tenderness to palpation the right lower quadrant CT imaging was performed. I personally reviewed interpreted CT scan abdomen pelvis which demonstrates acute uncomplicated appendicitis. I discussed patient management with general surgeon Dr. Cosby who recommends admission to the hospitalist overnight and plan for surgical intervention in the morning. Will replace potassium with 20 mEq IV, NPO, IV fluids, and IV Zosyn given in the emergency department. I discussed patient management with hospitalist ([facility]) Dr. Xiao who agrees with observation admission for acute appendicitis. Patient understands and agrees the plan. Medical Records Attestation: I reviewed the patient's medical records. Lab Data Attestation: I reviewed the patient's lab results. Labs: Lab Results 01/28/25 01/28/25 Range/Units 22:10 22:34 WBC 7.93 (4.50-11.00) K/uL RBC 3.84 L (4.00-5.20) m/uL Hgb 11.3 L (12.0-16.0) gm/dL Hct 34.8 (33.0-51.0) % MCV 91 (80-100) fL MCH 29 (26-34) pg MCHC 33 (32-36) gm/dL RDW Coeff of Chetan 12.9 (11.5-15.5) % Plt Count 258 (140-440) K/uL Neut % (Auto) 65.6 (42.0-72.0) % Lymph % (Auto) 18.4 L (20-44) % Martin % (Auto) 12.6 H (0.0-11.0) % Eos % (Auto) 2.3 (0.0-7.0) % Baso % (Auto) 0.3 (0.0-3.0) % Neut # (Auto) 5.21 (1.7-7.0) K/uL Lymph # (Auto) 1.50 (0.90-2.90) K/uL Martin # (Auto) 1.00 H (0.00-0.90) K/UL Eos # (Auto) 0.18 (0.00-0.50) K/uL Baso # (Auto) 0.02 (0.00-0.30) K/uL Abs Immat Gran (auto) 0.06 (0.00-0.30) K/uL Imm/Tot Granulo (auto) 0.8 % Sodium 140 (135-149) mmol/L Potassium 3.3 L (3.6-5.1) mmol/L Chloride 106 (96-114) mmol/L Carbon Dioxide 25 (20-32) mmol/L Anion Gap 9 (7-15) mEq/L BUN 16 (7-30) mg/dL Creatinine 0.6 (0.5-1.5) mg/dL Estimated Creat Clear 101.51 Estimated GFR 107 ml/min Glucose 95 (60-115) mg/dL Calcium 8.5 (8.4-10.6) mg/dL Total Bilirubin 0.2 (0.1-1.5) mg/dL AST 20 (12-35) U/L ALT 20 (4-35) U/L Alkaline Phosphatase 135 (40-150) U/L Total Protein 6.5 (6.0-8.3) g/dL Albumin 3.7 (3.3-5.0) g/dL Lipase 132 (23-300) U/L Urine Color Yellow (Yellow) Urine Appearance Clear (Clear) Urine pH 6.0 (5.0-8.5) Ur Specific [place] 1.015 (1.000-1.030) Urine Protein Negative (Negative) Urine Glucose (UA) Trace A (Negative) Urine Ketones Negative (Negative) Urine Blood 1+ A (Negative) Urine Nitrite Negative (Negative) Urine Bilirubin Negative (Negative) Urine Urobilinogen 0.2 (0.2-1.0) Ur Leukocyte Esterase Negative (Negative) Urine RBC 0-2 (0-2) Urine WBC 2-5 (0-5) Ur Squamous Epith Cells Few (None-Few) Urine Bacteria Few A (None) Imaging Data CT scan - abdomen: Attestation: I have reviewed the pertinent imaging results. Radiologist's impression: Patient: Jenni Franks MR#: [id number] : 1970 Acct:[id number] Loc: ED Service Date: 01/28/[address]: Ordering Physician: Sherrie Llanos M.D. Date of Service: 01/28/25 Procedure(s): CT abdomen pelvis w con Accession Number(s): [id number] cc: Sherrie Llanos M.D.; Danielle LEONARDO~ For Patients: As a result of the 21st Century Cures Act, medical imaging exams and procedure reports are released immediately into your electronic medical record. You may view this report before your referring provider. If you have questions, please contact your health care provider. INDICATION: Right lower quadrant pain history of stones. TECHNIQUE: CT abdomen and pelvis acquired with 77 cc of Isovue 370 IV contrast. COMPARISON: CT abdomen and pelvis 05/23/2009. FINDINGS: Lower chest: Unremarkable. Liver: Unremarkable. Normal in size and attenuation. No suspicious masses. Gallbladder and bile ducts: Status post cholecystectomy. No abnormal biliary ductal dilatation. Pancreas: Unremarkable. No mass or inflammation. Spleen: Unremarkable. Normal in size. No masses. Adrenal glands: Unremarkable. No nodules. Kidneys: Numerous bilateral tiny nonobstructing nephroliths. Small bilateral renal cysts. No suspicious mass. GI tract: Rain-en-Y gastric bypass changes. No obstruction. Thickened hyperemic and fluid-filled appendix measuring 1.3 cm with [id number] periappendiceal inflammatory stranding in the right lower quadrant. No evidence for perforation or abscess formation. Vasculature: Abdominal aorta is normal in caliber. Mesenteric arteries are patent. Lymph nodes: No lymphadenopathy. Peritoneum/Abdominal Wall: Unremarkable. No free air or significant free fluid. Pelvis: Status post hysterectomy. Bones: Unremarkable for age. IMPRESSION: 1. Acute uncomplicated appendicitis in the right lower quadrant. 2. Numerous tiny bilateral nonobstructing nephroliths. Please note that all CT scans at this facility use dose modulation, iterative reconstruction, and/or weight-based dosing when appropriate to reduce radiation dose to as low as reasonably achievable. Dictated by Sebastian Lane MD @ 01/29/2025 12:04:51 AM (Electronically Signed) Discharge Plan Discharge Clinical Impression: Acute appendicitis Patient Disposition: Admitted As Observation Condition: Stable
--- NOTE | 2025-01-28 23:34 | CRLHL7_ITS ---
For Patients: As a result of the Century Cures Act, medical imaging exams and procedure reports are released immediately into your electronic medical record. You may view this report before your referring provider. If you have questions, please contact your health care provider. INDICATION: Right lower quadrant pain history of stones. TECHNIQUE: CT abdomen and pelvis acquired with 77 cc of Isovue 370 IV contrast. COMPARISON: CT abdomen and pelvis 05/23/2009. FINDINGS: Lower chest: Unremarkable. Liver: Unremarkable. Normal in size and attenuation. No suspicious masses. Gallbladder and bile ducts: Status post cholecystectomy. No abnormal biliary ductal dilatation. Pancreas: Unremarkable. No mass or inflammation. Spleen: Unremarkable. Normal in size. No masses. Adrenal glands: Unremarkable. No nodules. Kidneys: Numerous bilateral tiny nonobstructing nephroliths. Small bilateral renal cysts. No suspicious mass. GI tract: Rain-en-Y gastric bypass changes. No obstruction. Thickened hyperemic and fluid-filled appendix measuring 1.3 cm with [id number] periappendiceal inflammatory stranding in the right lower quadrant. No evidence for perforation or abscess formation. Vasculature: Abdominal aorta is normal in caliber. Mesenteric arteries are patent. Lymph nodes: No lymphadenopathy. Peritoneum/Abdominal Wall: Unremarkable. No free air or significant free fluid. Pelvis: Status post hysterectomy. Bones: Unremarkable for age. IMPRESSION: 1. Acute uncomplicated appendicitis in the right lower quadrant. 2. Numerous tiny bilateral nonobstructing nephroliths. Please note that all CT scans at this facility use dose modulation, iterative reconstruction, and/or weight-based dosing when appropriate to reduce radiation dose to as low as reasonably achievable. Dictated by Sebastian Lane MD @ 01/29/2025 12:04:51 AM (Electronically Signed)
[2025-01-29] VITALS (24 sets, daily range): BP systolic 118–152; BP diastolic 74–98; PULSE 60–81; RESP 12–18; TEMP 36.6–37.7; O2SAT 90–99; BMI 24.9
[2025-01-29] MEDS: PIPERACILLIN/TAZOBACTAM 4.5 GM in 0.9 % SODIUM CHLORIDE Mini-bag 100 ML IVPB (00:48)
--- NOTE | 2025-01-29 01:35 | W.PM.TELEH&P ---
Telehealth- H&P: HPI History of Present Illness Time Seen by Provider: 01:35 Date Seen: 01/29/25 Chief complaint: Lower abdominal pain Narrative: Jenni Franks is seen as an Interactive Telehealth visit. Jenni Franks is a 54 year old female presenting with RLQ abdominal pain that started three days prior to admission. Patient has history of renal stones. Although pain was different, she thought pain may have been due to nephrolithiasis. Pain exacerbated with eating and improved with ibuprofen. she also had nausea without vomiting. No fevers but did experience hot/cold sensation. Since the stone did not pass and pain did not resolve by tonight, patient came to the ED. nausea no vomiting no fever felt hot/cold yesterday +headaches no dizziness no diarrhea no constipation no melena no hematochezia no abnormal urinary sensations Medication PRistiq Lisinopril Social history No smoking No Alcohol PFSH PFSH Medical History (Updated 01/29/25 @ 00:30 by Sherrie Llanos MD) Elbow pain, right ?M25.521 - Pain in right elbow (ICD-10) Urinary tract infection ?N39.0 - Urinary tract infection, site not specified (ICD-10) Herpes simplex ?B00.9 - Herpesviral infection, unspecified (ICD-10) Impetiginous eczema ?L01.1 - Impetiginization of other dermatoses (ICD-10) Premenstrual dysphoric disorder (04/30/12) ?F32.81 - Premenstrual dysphoric disorder (ICD-10) Menorrhagia (04/30/12) ?N92.0 - Excessive and frequent menstruation with regular cycle (ICD-10) History of renal calculi ?Z87.442 - Personal history of urinary calculi (ICD-10) Exposure to severe acute respiratory syndrome coronavirus 2 (SARS-CoV-2) ?Z20.822 - Contact with and (suspected) exposure to COVID-19 (ICD-10) Depressive disorder (09/18/06) ?F32.A - Depression, unspecified (ICD-10) Dental abscess ?K04.7 - Periapical abscess without sinus (ICD-10) Benign hypertension (05/24/12) ?I10 - Essential (primary) hypertension (ICD-10) Surgical History History of tubal ligation ?Z98.51 - Tubal ligation status (ICD-10) History of total hysterectomy ?Z90.710 - Acquired absence of both cervix and uterus (ICD-10) History of hernia repair ?Z98.890 - Other specified postprocedural states (ICD-10) ?Z87.19 - Personal history of other diseases of the digestive system (ICD-10) History of gastric bypass ?Z98.84 - Bariatric surgery status (ICD-10) History of cholecystectomy ?Z90.49 - Acquired absence of other specified parts of digestive tract (ICD-10) Family History Mother Diabetes High blood pressure Other Gout Social History Narrative: Has 3 children No history of alcohol use Non-smoker Smoking Status: Never smoker Second hand tobacco smoke exposure: No How often do you have a drink containing alcohol: never AUDIT-C Alcohol total score: 0 Non-prescribed substance use: denies use Meds Home Medications and Allergies Home Medications ?Medication ?Instructions ?Recorded ?Confirmed ?Type desvenlafaxine succinate 100 mg 100 mg PO DAILY 10/27/23 01/28/25 History tablet,extended release 24 hr dextroamphetamine-amphetamine 5 mg 1 tab PO DAILY 10/27/23 01/28/25 History tablet dextroamphetamine-amphetamine ER 1 cap PO QAM 10/27/23 01/28/25 History 15 mg 24hr capsule,extend release valacyclovir 500 mg tablet 500 mg PO DAILY PRN 11/12/23 01/28/25 History lisinopril 5 mg tablet 5 mg PO QDAY #90 tabs 11/16/24 01/28/25 Rx Allergies Allergy/AdvReac Type Severity Reaction Status Date / Time No Known Drug Allergies Allergy Verified 01/28/25 22:17 Exam Narrative Exam Narrative: Physical Exam GENERAL: ?vital signs reviewed, well developed and nourished, in no distress HEENT: pupils are equal round and reactive to light, extraocular movements are grossly within normal limits and oral mucosa is moist. NECK: Supple without lymphadenopathy or thyromegaly according to nursing staff examination observation HEART: Regular rate and rhythm without any rubs, murmurs, or gallops. LUNGS: Clear to auscultation bilaterally with good air movement throughout ABDOMEN: Observation from nurse assisted exam, abdomen appears soft, +tender in RLQ, and nondistended with Positive bowel sounds noted. EXTREMITIES: Strength and sensation is observed to be grossly within normal limits in the upper and lower extremities.? No focal strength deficit is observed. SKIN:? Observed warm and dry with color normal Const Vital Signs, click to edit/add: Vital Signs - 24 hr 01/28/25 22:13 01/29/25 00:13 01/29/25 01:00 Temperature 98.5 F 98.5 F Pulse Rate [Right Pulse Oximeter] 74 70 Respiratory Rate 18 18 Blood Pressure [Right Upper Arm] 121/86 118/74 Pulse Oximetry 99 99 99 Oxygen Delivery Method Room Air Room Air 01/29/25 01:26 Temperature 98.5 F Pulse Rate [Right Pulse Oximeter] 70 Respiratory Rate 18 Blood Pressure [Right Upper Arm] 118/74 Pulse Oximetry Oxygen Delivery Method Hospitalist - H&P: Result Labs Labs: Short CBC 01/28/25 Range/Units 22:34 WBC 7.93 (4.50-11.00) K/uL Hgb 11.3 L (12.0-16.0) gm/dL Hct 34.8 (33.0-51.0) % Plt Count 258 (140-440) K/uL BMP 01/28/25 22:34 Sodium 140 Potassium 3.3 L Chloride 106 Carbon Dioxide 25 BUN 16 Creatinine 0.6 Glucose 95 Calcium 8.5 Liver Function 01/28/25 Range/Units 22:34 Total Bilirubin 0.2 (0.1-1.5) mg/dL AST 20 (12-35) U/L ALT 20 (4-35) U/L Alkaline Phosphatase 135 (40-150) U/L Albumin 3.7 (3.3-5.0) g/dL Urine 01/28/25 Range/Units 22:10 Urine Color Yellow (Yellow) Urine Appearance Clear (Clear) Urine pH 6.0 (5.0-8.5) Ur Specific [place] 1.015 (1.000-1.030) Urine Protein Negative (Negative) Urine Glucose (UA) Trace A (Negative) Imaging CT scan - abdomen: Radiologist's impression: CT abdomen and pelvis acquired with 77 cc of Isovue 370 IV contrast. . FINDINGS: Lower chest: Unremarkable. Liver: Unremarkable. Normal in size and attenuation. No suspicious masses. Gallbladder and bile ducts: Status post cholecystectomy. No abnormal biliary ductal dilatation. Pancreas: Unremarkable. No mass or inflammation. Spleen: Unremarkable. Normal in size. No masses. Adrenal glands: Unremarkable. No nodules. Kidneys: Numerous bilateral tiny nonobstructing nephroliths. Small bilateral renal cysts. No suspicious mass. GI tract: Rain-en-Y gastric bypass changes. No obstruction. Thickened hyperemic and fluid-filled appendix measuring 1.3 cm with [id number] periappendiceal inflammatory stranding in the right lower quadrant. No evidence for perforation or abscess formation. Vasculature: Abdominal aorta is normal in caliber. Mesenteric arteries are patent. Lymph nodes: No lymphadenopathy. Peritoneum/Abdominal Wall: Unremarkable. No free air or significant free fluid. Pelvis: Status post hysterectomy. Bones: Unremarkable for age. IMPRESSION: 1. Acute uncomplicated appendicitis in the right lower quadrant. 2. Numerous tiny bilateral nonobstructing nephroliths. Assessment and Plan Assessment and plan (1) Acute appendicitis: Status: Acute (2) HTN (hypertension): Status: Acute (3) Anxiety and depression: Status: Acute Plan 54y/o F h/o hypertension presents with abdominal pain. Per imaging, patient has appendicitis. General surgery is aware adn will perform an appendectomy at 9am per disucssion with ED. --administer IVF --NPO --opiates --antiemetics --zosyn for peroperative abx Full code per discussion Telehealth: Statement Statement Telehealth Visit: Today's History and Physical is provided via interactive telehealth by Tonya Xiao MD.? Patient is located at [facility].? Provider is located at [facility].? Nursing staff assisted with the patient's exam. The visit being done today meets criteria for a telehealth visit and the patient or patient?s parent/guardian is aware the visit is a telehealth visit. Camera Start Time: 01:35 Camera End Time: 01:50
[2025-01-29 01:40] LABS: Ur HCG Qualitative* Negative (Negative)
[2025-01-29] MEDS: POTASSIUM CHLORIDE 10 MEQ/100 ML PIGGYBACK 100 MEQ IVPB ×2 (02:06→03:26)
[2025-01-29] MEDS: 5 % DEX/0.45 SOD CHL+KCL20 mEq 1,000 ML 75 ML IV (02:27)
[2025-01-29] MEDS: SODIUM CHLORIDE 0.9 % (FLUSH) 10 ML SYRINGE 5 ML IVF (03:25)
[2025-01-29] MEDS: PIPERACILLIN/TAZOBACTAM 3.375 GM in 0.9 % SODIUM CHLORIDE Mini-bag 100 ML IVPB (06:59)
--- NOTE | 2025-01-29 08:51 | PM.GSCN ---
History of Present Illness Consult details Date Seen: 01/29/25 Consult date: 01/29/25 Narrative: Patient presented to the emergency department last night with 3 days abdominal pain. She has a history of kidney stones, but felt like this pain was different. The pain started around her belly button and then moved to her right lower quadrant. She does report some nausea, no emesis. No fevers. She works as a inspection manager. Her surgical history includes gastric bypass with cholecystectomy and hysterectomy, both procedures laparoscopic. Review of Systems Status of ROS: Reports: 10 or more systems reviewed and unremarkable except as noted in History and below [facility] Medical History (Updated 01/29/25 @ 00:30 by Sherrie Llanos MD) Elbow pain, right ?M25.521 - Pain in right elbow (ICD-10) Urinary tract infection ?N39.0 - Urinary tract infection, site not specified (ICD-10) Herpes simplex ?B00.9 - Herpesviral infection, unspecified (ICD-10) Impetiginous eczema ?L01.1 - Impetiginization of other dermatoses (ICD-10) Premenstrual dysphoric disorder (04/30/12) ?F32.81 - Premenstrual dysphoric disorder (ICD-10) Menorrhagia (04/30/12) ?N92.0 - Excessive and frequent menstruation with regular cycle (ICD-10) History of renal calculi ?Z87.442 - Personal history of urinary calculi (ICD-10) Exposure to severe acute respiratory syndrome coronavirus 2 (SARS-CoV-2) ?Z20.822 - Contact with and (suspected) exposure to COVID-19 (ICD-10) Depressive disorder (09/18/06) ?F32.A - Depression, unspecified (ICD-10) Dental abscess ?K04.7 - Periapical abscess without sinus (ICD-10) Benign hypertension (05/24/12) ?I10 - Essential (primary) hypertension (ICD-10) Surgical History History of tubal ligation ?Z98.51 - Tubal ligation status (ICD-10) History of total hysterectomy ?Z90.710 - Acquired absence of both cervix and uterus (ICD-10) History of hernia repair ?Z98.890 - Other specified postprocedural states (ICD-10) ?Z87.19 - Personal history of other diseases of the digestive system (ICD-10) History of gastric bypass ?Z98.84 - Bariatric surgery status (ICD-10) History of cholecystectomy ?Z90.49 - Acquired absence of other specified parts of digestive tract (ICD-10) Family History Mother Diabetes High blood pressure Other Gout Social History Narrative: Has 3 children No history of alcohol use Non-smoker What is your current living situation?: I presently have a place to live Problems where you live: no known problems Problems where you live details: none In the past 12 months, utilities in danger of being shut off: no In past 12 months, lack of transportation kept you from medical appts, meetings, work, or getting things needed for daily living: no In the past 12 mos, have been you worried that your food would run out before you had money to buy more?: never true In the past 12 mos, the food you bought just didn't last and you didn't have money to buy more?: never true Highest level of school completed/degree received: decline to answer Smoking Status: Never smoker Second hand tobacco smoke exposure: No How often do you have a drink containing alcohol: never How often do you have six or more drinks on one occasion: Never AUDIT-C Alcohol total score: 0 Non-prescribed substance use: denies use Caffeine: No How often does anyone, including family, friends and others, physically hurt you: never How often does anyone, including family, friends and others, insult or talk down to you: never How often does anyone, including family, friends and others, threaten you with harm: never How often does anyone, including family, friends and others, scream or curse at you: never service: No Meds Home Medications and Allergies Home Medications ?Medication ?Instructions ?Recorded ?Confirmed ?Type desvenlafaxine succinate 100 mg 100 mg PO DAILY 10/27/23 01/28/25 History tablet,extended release 24 hr dextroamphetamine-amphetamine 5 mg 1 tab PO DAILY 10/27/23 01/28/25 History tablet dextroamphetamine-amphetamine ER 1 cap PO QAM 10/27/23 01/28/25 History 15 mg 24hr capsule,extend release valacyclovir 500 mg tablet 500 mg PO DAILY PRN 11/12/23 01/28/25 History lisinopril 5 mg tablet 5 mg PO QDAY #90 tabs 11/16/24 01/28/25 Rx Allergies Allergy/AdvReac Type Severity Reaction Status Date / Time No Known Drug Allergies Allergy Verified 01/28/25 22:17 Exam Narrative: Exam Narrative: General: Alert and oriented, no acute distress Respiratory: Equal breath rise bilaterally, maintained on room air CV: Well perfused Abdomen: Soft, tender to palpation right lower quadrant with some guarding, no rebound. Const: Vital Signs, click to edit/add: Vital Signs - 24 hr 01/28/25 22:13 01/29/25 00:13 01/29/25 01:00 Temperature 98.5 F 98.5 F Pulse Rate [Left P ulse Oximeter] Pulse Rate [Right Pulse Oximeter] 74 70 Respiratory Rate 18 18 Blood Pressure [Le ft Arm] Blood Pressure [Ri ght Upper Arm] 121/86 118/74 Pulse Oximetry 99 99 99 Oxygen Delivery Me thod Room Air Room Air 01/29/25 01:25 01/29/25 01:25 01/29/25 01:26 Temperature 98.1 F 98.5 F Pulse Rate [Left P ulse Oximeter] 69 Pulse Rate [Right Pulse Oximeter] 70 Respiratory Rate 18 18 18 Blood Pressure [Le ft Arm] 143/90 H Blood Pressure [Ri ght Upper Arm] 118/74 Pulse Oximetry 95 95 Oxygen Delivery Hi thod Room Air Room Air 01/29/25 03:00 Temperature 98 F Pulse Rate [Left P ulse Oximeter] 69 Pulse Rate [Right Pulse Oximeter] Respiratory Rate 18 Blood Pressure [Le ft Arm] 139/92 H Blood Pressure [Ri ght Upper Arm] Pulse Oximetry 95 Oxygen Delivery Me thod Room Air Results Labs Labs: Abnormal lab results 01/28/25 01/28/25 Range/Units 22:10 22:34 RBC 3.84 L (4.00-5.20) m/uL Hgb 11.3 L (12.0-16.0) gm/dL Lymph % (Auto) 18.4 L (20-44) % Leake % (Auto) 12.6 H (0.0-11.0) % [place]ake # (Auto) 1.00 H (0.00-0.90) K/UL Potassium 3.3 L (3.6-5.1) mmol/L Urine Glucose (UA) Trace A (Negative) Urine Blood 1+ A (Negative) Urine Bacteria Few A (None) Diabetes panel 01/28/25 Range/Units 22:34 Sodium 140 (135-149) mmol/L Potassium 3.3 L (3.6-5.1) mmol/L Chloride 106 (96-114) mmol/L Carbon Dioxide 25 (20-32) mmol/L BUN 16 (7-30) mg/dL Creatinine 0.6 (0.5-1.5) mg/dL Glucose 95 (60-115) mg/dL Calcium 8.5 (8.4-10.6) mg/dL AST 20 (12-35) U/L ALT 20 (4-35) U/L Alkaline Phosphatase 135 (40-150) U/L Total Protein 6.5 (6.0-8.3) g/dL Albumin 3.7 (3.3-5.0) g/dL Calcium panel 01/28/25 Range/Units 22:34 Calcium 8.5 (8.4-10.6) mg/dL Albumin 3.7 (3.3-5.0) g/dL Pituitary panel 01/28/25 Range/Units 22:34 Sodium 140 (135-149) mmol/L Potassium 3.3 L (3.6-5.1) mmol/L Chloride 106 (96-114) mmol/L Carbon Dioxide 25 (20-32) mmol/L BUN 16 (7-30) mg/dL Creatinine 0.6 (0.5-1.5) mg/dL Glucose 95 (60-115) mg/dL Calcium 8.5 (8.4-10.6) mg/dL Adrenal panel 01/28/25 Range/Units 22:34 Sodium 140 (135-149) mmol/L Potassium 3.3 L (3.6-5.1) mmol/L Chloride 106 (96-114) mmol/L Carbon Dioxide 25 (20-32) mmol/L BUN 16 (7-30) mg/dL Creatinine 0.6 (0.5-1.5) mg/dL Glucose 95 (60-115) mg/dL Calcium 8.5 (8.4-10.6) mg/dL Total Bilirubin 0.2 (0.1-1.5) mg/dL AST 20 (12-35) U/L ALT 20 (4-35) U/L Alkaline Phosphatase 135 (40-150) U/L Total Protein 6.5 (6.0-8.3) g/dL Albumin 3.7 (3.3-5.0) g/dL All other labs normal. Imaging Abdomen CT scan report/results: report reviewed and image reviewed Progress Note:A&P Assessment and plan (1) Acute appendicitis: Status: Acute Assessment and Plan: The patient presented with a history, exam and imaging findings consistent with acute appendicitis. I discussed the treatment options with the patient including non-surgical and surgical options. I recommended laparoscopic appendectomy. The risks of surgery were reviewed with the patient including the risks of bleeding, post-operative wound or intra-abdominal infection, injury to abdominal structures and possible conversion to an open operation. We also discussed anesthetic complications including [place], stroke, respiratory failure and blood clots. The patient voiced an understanding of our conversation, had the opportunity to ask questions, agreed to accept the risks of surgery and asked that we proceed with surgery. Plan -OR for laparoscopic appendectomy
[2025-01-29] MEDS: BUPIVACAINE 0.25% 30 ML INJECTION (09:50)
--- NOTE | 2025-01-29 09:59 | PM.GSPRC ---
Operative Note Date of procedure: 01/29/25 Pre-op diagnosis: Acute appendicitis Post-op diagnosis: Same, non perforated Type of Procedure: Laparoscopic appendectomy Indications: Patient is a 54-year-old female who presented to the emergency department with clinical workup consistent with acute appendicitis. Risks and benefits of operative intervention were discussed at length with the patient. Risks included but was not limited to: Bleeding, infection, risk of damage to surrounding structures, possible need for additional procedures, possible need to convert to an open operation and postoperative complications such as pneumonia, pulmonary emboli or [place]. All questions and concerns were addressed with the patient agreeing to proceed. Procedure Description: After discussing the risks and benefits of the procedure, the patient signed informed consent.? The operative site was marked and the patient was brought to the operating room and placed on the operating table in supine position.? Care was taken to pad the patient's pressure points.?? The patient was then intubated by anesthesia.?? The operative site was then prepped and draped in the usual sterile fashion.? A time-out was then performed. Entrance to the abdomen was obtained via a 5 mm optical trocar in the left upper quadrant. The abdomen was insufflated and briefly surveyed for any signs of injury. There were none. A 12 mm port was placed at the umbilicus as well as a 5 mm port in the left lower quadrant under direct vision. The patient was then placed in Trendelenburg position with the right side up. The small bowel was gently moved out of the way and the appendix was in view, adherent to the lateral abdominal wall. This was bluntly dissected free. A small amount of dissection was necessary to free the appendix from the surrounding pelvic attachments. The body of the appendix was grasped and pulled into view. A mesenteric window was created between the base of the appendix and the mesoappendix. A 45 mm vascular load stapler was then used to take the mesoappendix. A small pelvic attachment was still present. A 5 mm clip was applied to this area and it was transected with cautery. A 45 mm Endo-PRASHANTH purple load stapler was then used to transect the appendix at its base. The staple lines were inspected for bleeding. A small amount of irrigation was used to locally and all fluid suctioned. There was no evidence of bleeding. The appendix was then removed from the abdomen using an Endo-Catch bag. The specimen was sent to pathology. The 12 mm port site fascia was closed with 0 Vicryl the a of [id number] stitch. A 2nd look in the abdomen was performed and omentum placed over the appendectomy site. The left lower quadrant port was removed under direct visualization. The left upper quadrant port was used to remove the remaining CO2 within the abdomen before being removed. The skin was then closed with absorbable subcuticular suture. Sterile dressings were then applied. Instrument sponge and needle counts were correct at the end of the case. The patient was then woken and transported to the PACU in stable condition. Findings: Inflamed appendix, non perforated Anesthesia: GETA Surgeon: Ginny Whitley MD Estimated blood loss (mL): 15 Specimen: Appendix Condition: stable Disposition: PACU
--- NOTE | 2025-01-29 10:21 | P.ANES_ITS ---
Anesthesia Charges Start Date/Time Anesthesia Start Date: 01/29/25 Anesthesia Start Time: 08:58 Stop Date/Time Anesthesia Stop Date: 01/29/25 Anesthesia Stop Time: 10:13 Summary Emergency: SEWER INSPECTOR Coding CPT Codes CPT Codes: ANESTH SURG LOWER ABDOMEN - 97100 ([id number]) P2 - PATIENT W/MILD SYST DISEASE, QZ - SEWER INSPECTOR SVC W/O GLUING MACHINE OPERATOR ELECTRONIC BY Additional Codes: Summary - Emergency: SEWER INSPECTOR ([id number])
--- NOTE | 2025-01-29 10:21 | W.ANESCHARGE ---
Anesthesia Charges Start Date/Time Anesthesia Start Date: 01/29/25 Anesthesia Start Time: 08:58 Stop Date/Time Anesthesia Stop Date: 01/29/25 Anesthesia Stop Time: 10:13 Summary Emergency: SNAILER Coding CPT Codes CPT Codes: ANESTH SURG LOWER ABDOMEN - 95438 ([id number]) P2 - PATIENT W/MILD SYST DISEASE, QZ - SNAILER SVC W/O CASHIER GREETER BY Additional Codes: Summary - Emergency: SNAILER ([id number])
[2025-01-29] MEDS: PROCHLORPERAZINE 5 MG/ML VIAL IVP (13:42)
[2025-01-29] MEDS: HYDROCODONE-ACETAMIN 5-325 MG 1 TAB PO (15:37)
== END 2025-01-29 15:48 | disposition home or self-care (01) ==
LOC: ED 01-29 00:30 → OR 01-29 01:01 → MEDSURG 01-29 01:03
PROVIDERS: Internal Medicine; Emergency Provider Emergency Medicine; PCP Physician Assistant Medical; Visit Provider Surgery
PROC: 0DTJ4ZZ Resection of Appendix, Percutaneous Endoscopic Approach (ICD-10-PCS; CPT 44970; principal; 2025-01-29 09:00)
DX: K35.80 Unspecified acute appendicitis (principal); I10 Essential (primary) hypertension; Z98.84 Bariatric surgery status; F41.9 Anxiety disorder, unspecified; F32.A Depression, unspecified
CPT/HCPCS: 44970; 00840; 36415; 74177; 80053; 81001; 81025; 83690; 85025; 87086; 88304; 94761; 99140; 99285; A9270; J0330; J0665; J0780; J1100; J1171; J1630; J2250; J2405; J2543; J2704; J2765; J3010; J3480; J3490; J7030; Q9967